=== PATIENT | male | born 1965 | race Caucasian/White ===

== ENCOUNTER 2017-08-04 09:26 | Emergency (ER) | payer BC ==
[2017-08-04 10:26] VITALS: BP 153/98
--- NOTE | 2017-08-04 11:43 | UC ---
Nikkie Lerma Emily, scribed for Olivia Mckoy DO on 08/04/17 at 1039 . Skin Complaint HPI - HPI Summary HPI Summary: This patient is a 51 year old M presenting to urgent care with a chief complaint of redness and swelling at left elbow that began 5 days ago. The CC is described as a constant burn. The patient rates the pain 6/10 in severity. Symptoms aggravated by movement and touch. Symptoms alleviated by nothing. Patient reports pain at L elbow, chills, and nausea. Patient denies fever and diaphoresis. Patient denies any recent injury or animal bite. Medications reviewed this visit. - History of Current Complaint Chief Complaint: UCSkin Time Seen by Provider: 08/04/17 10:29 Stated Complaint: INFECTION L ARM Hx Obtained From: Patient Onset/Duration: Sudden Onset, Lasting Days, Still Present Onset Severity: Moderate Current Severity: Moderate Pain Intensity: 6 Pain Scale Used: 0-10 Numeric Location: Other - L elbow Character: Swelling, Pain, Redness Aggravating Factor(s): Touch, Other - Movement Alleviating Factor(s): Nothing Associated Signs & Symptoms: Positive: Nausea - resolved, Chills - resolved. Negative: Diaphoresis, Fever - Allergy/Home Medications Allergies/Adverse Reactions: Allergies Allergy/AdvReac Type Severity Reaction Status Date / Time No Known Allergies Allergy Verified 08/04/17 10:27 Review of Systems Constitutional: Chills, Other - Negative fever Skin: Other - Positive redness and swelling at L elbow. Negative diaphoresis Gastrointestinal: Nausea Musculoskeletal: Other: - Positive pain at L elbow All Other Systems Reviewed And Are Negative: Yes PMH/Surg Hx/FS Hx/Imm Hx - Additional Past Medical History Additional PMH: Shingles Negative MRSA Previously Healthy: No Other Endocrine History: Negative diabetes Other History Of: Negative For: HIV - Surgical History Surgical History: None - Family History Known Family History: Positive: Cardiac Disease - Social History Occupation: Employed Full-time Lives: With Family Alcohol Use: Occasionally Substance Use Type: None Smoking Status (MU): Never Smoked Tobacco - Immunization History Most Recent Tetanus Shot: 2006 Physical Exam Triage Information Reviewed: Yes Appearance: Well-Appearing, No Pain Distress, Well-Nourished Vital Signs: Initial Vital Signs Temp 98.5 F 08/04/17 10:18 Pulse 72 08/04/17 10:18 Resp 16 08/04/17 10:18 BP 153/98 08/04/17 10:18 Pulse Ox 99 08/04/17 10:18 Vital Signs Reviewed: Yes Eyes: Positive: Conjunctiva Clear. Negative: Discharge ENT: Positive: Hearing grossly normal. Negative: Muffled/hoarse voice Neck exam: Normal Neck: Positive: Supple Respiratory: Positive: Lungs clear, Normal breath sounds, No respiratory distress, No accessory muscle use Cardiovascular: Positive: RRR, No Murmur Musculoskeletal Exam: Normal Neurological: Positive: Alert, Muscle Tone Normal Psychological Exam: Normal Psychological: Positive: Age Appropriate Behavior Skin Exam: Normal Skin: Positive: Other - Warm, Dry, Normal Color Course/Dx - Course Course Of Treatment: This patient is a 51 year old M presenting to urgent care with a chief complaint of redness and swelling at left elbow that began 5 days ago. The CC is described as a constant burn. The patient rates the pain 6/10 in severity. Symptoms aggravated by movement and touch. Symptoms alleviated by nothing. Patient reports pain at L elbow, chills, and nausea. Patient denies fever and diaphoresis. Patient denies any recent injury or animal bite. Medications reviewed this visit. Physical Exam Findings. 13x10 cm indurated, erythematous, tender lesion positive for calor. No fluctuance. Central area of skin breakdown that is not draining. Medical Decision Making. High blood pressure noted. Patient will be discharged with prescription for Keflex and Bactrim with follow up from PCP. The patient is agreeable with this plan. - Differential Diagnoses - Skin Complaint Differential Diagnoses: Abscess, Cellulitis, Contact Dermatitis, Poison Mami, Urticaria, Varicella Zoster - Diagnoses Provider Diagnoses: Cellulitis. Abscess. Elevated blood pressure without diagnosis of hypertension. Discharge - Discharge Plan Condition: Stable Disposition: HOME Prescriptions: Acetaminop/Codeine 30 MG TAB* [Tylenol/Codeine 30 MG TAB*] 1 tab PO BEDTIME PRN #5 tab MDD 1 tab PRN Reason: Pain Cephalexin CAP* [Keflex CAP*] 500 mg PO BID #20 cap Sulfamethox/Trimethoprim DS* [Bactrim DS 800/160 TAB*] 1 tab PO BID #20 tab Patient Education Materials: Cellulitis (ED), Abscess (ED) Referrals: [facility] [Primary Care Provider] - 2 Days Additional Instructions: Your blood pressure was elevated at this visit. That does not mean you have hypertension, it is probably due to your current condition. Please follow up with your primary care provider The documentation as recorded by the Nikkie mayorga Emily accurately reflects the service I personally performed and the decisions made by me, Olivia Mckoy DO.
== END 2017-08-04 11:04 | disposition home or self-care (01) ==
LOC: UCEAST 09:26
DX: L03.114 Cellulitis of left upper limb (principal); R03.0 Elevated blood-pressure reading, without diagnosis of hypertension
CPT/HCPCS: 99212; G0463

== ENCOUNTER 2018-06-02 10:25 | Emergency (ER) | payer BC, OTHER ==
[2018-06-02 10:54] VITALS: BP 154/89
--- NOTE | 2018-06-02 11:08 | UC ---
Laceration HPI - HPI Summary HPI Summary: pt presents with laceration to left posterior proximal thumb that happened at ~ 1000 today Bleeding controlled. Pt states he is UTD with tetanus. - History Of Current Complaint Chief Complaint: UCLaceration Stated Complaint: WC-LEFT HAND CUT COMPLAINT Time Seen by Provider: 06/02/18 10:53 Hx Obtained From: Patient Laceration Location: Finger - left thumb Mechanism Of Injury: Sharp Trauma Onset/Duration: Sudden Onset Severity: Mild Pain Intensity: 0 Aggravating Factors: Position, Movement Related History: Dominant Hand Right - Allergies/Home Medications Allergies/Adverse Reactions: Allergies Allergy/AdvReac Type Severity Reaction Status Date / Time No Known Allergies Allergy Verified 06/02/18 10:53 Home Medications: Home Medications NK [No Home Medications Reported] 06/02/18 [History Confirmed 06/02/18] PMH/Surg Hx/FS Hx/Imm Hx Previously Healthy: Yes Other History Of: Negative For: HIV - Surgical History Surgical History: Yes Surgery Procedure, Year, and Place: L arm FB removal via surgery - Family History Known Family History: Positive: Cardiac Disease - Social History Occupation: Employed Full-time Lives: With Family Alcohol Use: Occasionally Substance Use Type: None Smoking Status (MU): Never Smoked Tobacco Have You Smoked in the Last Year: No - Immunization History Most Recent Tetanus Shot: 2017 Review of Systems Constitutional: Negative Skin: Other - laceration left thumb Eyes: Negative ENT: Negative Respiratory: Negative Cardiovascular: Negative Gastrointestinal: Negative Genitourinary: Negative Motor: Negative Neurovascular: Negative Musculoskeletal: Myalgia - at laceration site Neurological: Negative Psychological: Negative Is Patient Immunocompromised?: No All Other Systems Reviewed And Are Negative: Yes Physical Exam Triage Information Reviewed: Yes Appearance: Well-Appearing Vital Signs: Initial Vital Signs Temp 98.4 F 06/02/18 10:48 Pulse 67 06/02/18 10:48 Resp 18 06/02/18 10:48 BP 154/89 06/02/18 10:48 Pulse Ox 99 06/02/18 10:48 Vital Signs Reviewed: Yes Eye Exam: Normal ENT: Positive: Hearing grossly normal Dental Exam: Normal Neck exam: Normal Respiratory: Positive: No respiratory distress Musculoskeletal Exam: Normal Musculoskeletal: Positive: Strength Intact, ROM Intact Neurological Exam: Normal Psychological Exam: Normal Skin Exam: Other - laceration left thumb Laceration Repair - Laceration Repair 1 Description: Linear Laceration Size After Repair: Length (cm) - 2, Width (mm) - 2, Depth (mm) - 2 Modified For Repair: No Cleansing Completed Via Routine Prep: Yes Closure Material: Skin Adhesive, SteriStrips Closure Method: Single Layer Suture Of: Skin Laceration Course/Dx - Differential Dx - Laceration/Wound Differental Diagnoses: Laceration Provider Diagnoses: laceration repair to left thumb Discharge - Sign-Out/Discharge Documenting (check all that apply): Patient Departure All imaging exams completed and their final reports reviewed: No Studies - Discharge Plan Condition: Stable Disposition: HOME Patient Education Materials: Finger Laceration (ED), Skin Adhesive Care (ED) Referrals: Nessa Alfonso MD [Primary Care Provider] - - Billing Disposition and Condition Condition: STABLE Disposition: Home
== END 2018-06-02 11:22 | disposition home or self-care (01) ==
LOC: UCCORT 10:25
DX: S61.012A Laceration without foreign body of left thumb without damage to nail, initial encounter (principal); W26.9XXA Contact with unspecified sharp object(s), initial encounter; Y93.9 Activity, unspecified; Y92.9 Unspecified place or not applicable
CPT/HCPCS: 12001; 99211; 99212; G0463